=== PATIENT | male | born 1990 | race American Indian/Alaskan Native ===

== ENCOUNTER 2018-08-15 13:23 | Emergency (ER) | payer OTHER ==
--- NOTE | 2018-08-15 13:27 | Emergency Department Report ---
Chief Complaint: Upper Respiratory Infection Stated Complaint: FLU Time Seen by Provider: 08/15/18 13:26 - HPI History of Present Illness: simple urti s/s for 2 days aches dec appetite pmh none rx none VSS MSE completed flu swab sent MSE screening note: Focused history and physical exam performed. Due to findings the following was ordered: ED Disposition for MSE Condition: Stable
[2018-08-15 13:28] VITALS: BP 98/64
--- NOTE | 2018-08-15 14:01 | Emergency Department Report ---
- General Chief Complaint: Upper Respiratory Infection Stated Complaint: FLU Time Seen by Provider: 08/15/18 13:26 Source: patient Mode of arrival: Ambulatory Limitations: No Limitations - History of Present Illness MD Complaint: fever, cough, rhinorrhea, nasal congestion -: Last night Severity: moderate Context: sick contacts - Related Data Allergies Allergy/AdvReac Type Severity Reaction Status Date / Time tomatoe Allergy Rash Uncoded 08/15/18 13:24 ED Review of Systems ROS: Stated complaint: FLU Other details as noted in HPI Comment: All other systems reviewed and negative Constitutional: chills, fever Respiratory: cough. denies: shortness of breath, SOB with exertion, SOB at rest, wheezing Cardiovascular: denies: chest pain, palpitations Gastrointestinal: denies: abdominal pain, nausea, vomiting, diarrhea, constipation, hematemesis, melena, hematochezia Neurological: denies: headache, weakness, numbness, paresthesias, confusion, abnormal gait ED Past Medical Hx - Past Medical History Previous Medical History?: No - Surgical History Past Surgical History?: No - Social History Smoking Status: Current Every Day Smoker Substance Use Type: None ED Physical Exam - General Limitations: No Limitations General appearance: alert, in no apparent distress - Head Head exam: Present: atraumatic, normocephalic, normal inspection - Eye Eye exam: Present: normal appearance, PERRL - ENT ENT exam: Present: normal exam, normal orophraynx, mucous membranes moist - Neck Neck exam: Present: normal inspection, full ROM. Absent: tenderness, meningismus, lymphadenopathy, thyromegaly - Respiratory Respiratory exam: Present: normal lung sounds bilaterally - Cardiovascular Cardiovascular Exam: Present: regular rate, normal rhythm, normal heart sounds - GI/Abdominal GI/Abdominal exam: Present: soft, normal bowel sounds. Absent: distended, tenderness, guarding, rebound, rigid, organomegaly, mass, bruit, pulsatile mass, hernia - Extremities Exam Extremities exam: Present: normal inspection, full ROM, normal capillary refill. Absent: calf tenderness - Back Exam Back exam: Present: normal inspection, full ROM. Absent: tenderness, CVA tenderness (R), CVA tenderness (L), muscle spasm, paraspinal tenderness, vertebral tenderness - Neurological Exam Neurological exam: Present: alert, oriented X3, CN II-XII intact, normal gait, reflexes normal - Skin Skin exam: Present: warm, intact, normal color ED Course Vital Signs 08/15/18 13:27 Temperature 99.6 F Pulse Rate 99 H Respiratory 20 Rate Blood Pressure 98/64 O2 Sat by Pulse 100 Oximetry ED Medical Decision Making - Medical Decision Making Rapid influenza test is negative. Critical care attestation.: If time is entered above; I have spent that time in minutes in the direct care of this critically ill patient, excluding procedure time. ED Disposition Clinical Impression: Viral syndrome Disposition: DC-01 TO HOME OR SELFCARE Is pt being admited?: No Condition: Stable Instructions: Viral Syndrome (ED) Referrals: [facility] [Other] - 3-5 Days
== END 2018-08-15 15:28 | disposition home or self-care (01) ==
LOC: ED 13:23
DX: B34.9 Viral infection, unspecified (principal); F17.200 Nicotine dependence, unspecified, uncomplicated; Z91.018 Allergy to other foods
CPT/HCPCS: 87400; 99283